=== PATIENT | female | born 2000 | race Caucasian/White ===

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

== ENCOUNTER 2019-02-17 20:32 | Emergency (ER) | payer SELFPAY ==
[~2019-02-17] VITALS: Ht 157.5 cm; Wt 65.0 kg
[2019-02-18] MEDS: ACETAMINOPHEN WITH CODEINE 300/30MG TABLET PO ONE (00:29)
[2019-02-18] MEDS: IBUPROFEN 600MG TABLET PO ONE (00:29)
[2019-02-18 01:31] VITALS: BP 110/61
== END 2019-02-18 01:53 | disposition home or self-care (01) ==
LOC: ER 20:32
DX: S60.011A Contusion of right thumb without damage to nail, initial encounter (principal); J45.909 Unspecified asthma, uncomplicated; X58.XXXA Exposure to other specified factors, initial encounter; Y93.89 Activity, other specified; Y92.89 Other specified places as the place of occurrence of the external cause; Y99.8 Other external cause status
CPT/HCPCS: 29130; 73130; 81025; 99283

== ENCOUNTER 2019-02-19 15:02 | Emergency (ER) | payer SELFPAY ==
[~2019-02-19] VITALS: Ht 157.5 cm; Wt 64.0 kg
[2019-02-19] MEDS ORDERED: IBUPROFEN 600MG TABLET PO ONE (16:30)
[2019-02-19 17:33] VITALS: BP 140/86
== END 2019-02-19 17:34 | disposition home or self-care (01) ==
LOC: ER 15:02
DX: M25.512 Pain in left shoulder (principal); R03.0 Elevated blood-pressure reading, without diagnosis of hypertension
CPT/HCPCS: 99282

== ENCOUNTER 2019-03-24 14:51 | Emergency (ER) | payer SELFPAY ==
[~2019-03-24] VITALS: Ht 157.5 cm; Wt 66.0 kg
[2019-03-24 20:35] VITALS: BP 128/85
== END 2019-03-24 20:36 | disposition home or self-care (01) ==
LOC: ER 14:51
DX: M79.644 Pain in right finger(s) (principal); J45.909 Unspecified asthma, uncomplicated; Z87.828 Personal history of other (healed) physical injury and trauma
CPT/HCPCS: 73130; 81025; 99283

== ENCOUNTER 2019-07-18 13:25 | Emergency (ER) | payer MEDICAID ==
[~2019-07-18] VITALS: Ht 157.5 cm; Wt 77.0 kg
[2019-07-18 16:34] LABS: CLARITY URINE CLEAR (CLEAR); COLOR URINE YELLOW (YELLOW); KETONES URINE NEGATIVE (NEGATIVE); LEUKOCYTE ESTERASE URINE NEGATIVE (NEGATIVE); NITRITE URINE NEGATIVE (NEGATIVE); OCCULT BLOOD URINE NEGATIVE (NEGATIVE); PH URINE 5.5 (4.5-8.0); PROTEIN URINE NEGATIVE (NEGATIVE); UROBILINOGEN URINE 0.2 E.U./dL (0.2-1.0)
[2019-07-18 16:58] VITALS: BP 121/76
== END 2019-07-18 16:59 | disposition home or self-care (01) ==
LOC: ER 13:25
DX: R10.2 Pelvic and perineal pain (principal); N91.2 Amenorrhea, unspecified
CPT/HCPCS: 76830; 76856; 81003; 81025; 99284

== ENCOUNTER 2019-11-04 11:26 | Emergency (ER) | payer MEDICAID ==
[~2019-11-04] VITALS: Ht 154.9 cm; Wt 75.0 kg
[2019-11-04 11:41] VITALS: BP 115/70
== END 2019-11-04 15:41 | disposition left against medical advice (07) ==
LOC: ER 11:26
DX: R10.9 Unspecified abdominal pain (principal); Z53.21 Procedure and treatment not carried out due to patient leaving prior to being seen by health care provider

== ENCOUNTER 2023-08-25 06:32 | Emergency (ER) | payer MEDICAID ==
[~2023-08-25] VITALS: Ht 154.9 cm; Wt 75.0 kg
[2023-08-25 06:33] VITALS: PULSE 88
[2023-08-25 06:45] VITALS: BP 106/67; RESP 18; O2SAT 97
[2023-08-25] MEDS ORDERED: AMOX1TAB16 PO (07:17)
[2023-08-25] MEDS ORDERED: TOPUD PO (07:18)
[2023-08-25 07:30] VITALS: TEMP 98.1
[2023-08-25] MEDS ORDERED: ACETAMINOPHEN 325MG TABLET PO ONE (07:30)
== END 2023-08-25 08:35 | disposition home or self-care (01) ==
LOC: ER 06:32
DX: H69.91 Unspecified Eustachian tube disorder, right ear (principal)
CPT/HCPCS: 99283